=== PATIENT | male | born 1965 | race Caucasian/White ===

== ENCOUNTER 2016-07-27 20:16 | Inpatient (IN) | payer OTHER ==
--- NOTE | ~2016-07-27 | HP ---
History And Physical [address] [place]. [address] NAME: CIRO SCRUGGS JR : 67 STATUS : ADM IN [facility]#: [id number] AGE: 51 ADM/REG DATE : 07/27/16 MR#: [id number] REPORT SERV DATE: 07/28/16 DICTATED BY: WILTON QUILES DATE: 07/28/16 REPORT STATUS : Draft TRANSCRIBED BY: MODJennifer DATE: 07/28/16 DATE OF ADMISSION: 07/27/2016 CHIEF COMPLAINT: Dyspnea and edema. HISTORY OF PRESENT ILLNESS: Mr. Franco is a 51-year-old white male who underwent a cadaveric renal transplant in [place], [place], in 1995 for lupus. He was on dialysis for 22 months prior to his transplant. He follows with Dr. Mejia of [facility]. Records are not available at the time of this dictation. He states his baseline creatinine is approximately 4 over the last several months to years. Two weeks ago, his fosinopril was changed to amlodipine, and over that time, he has developed worsening edema, dyspnea, PND, orthopnea, and a 12 to 15 pounds weight gain. This past weekend, he stopped his amlodipine and restarted his previous dose of fosinopril. In the ER, chest x-ray last night showed a right lower lobe acute infiltrate, his BNP was 458. White count 13,100, and EKG showed atrial flutter. He was placed on IV heparin and admitted to the 7th floor. Initial troponin was normal. PAST MEDICAL HISTORY: 1. Cadaveric renal transplant in 1995 for lupus in [place], [place]. 2. CKD 5 with baseline creatinine 4 to 4.5. 3. Osteoarthritis with L3-S1 fusion in 2011 and subsequent S1 fusion with replacement of hardware in 2012. 4. Obstructive sleep apnea, on CPAP. 5. Obesity. 6. Hypertension. 7. Hyperlipidemia. MEDICATIONS: On admission, allopurinol 300 mg daily, vitamin C, atenolol 50 mg daily, clonidine 0.2 twice a day, cyclosporine 100 mg b.i.d., fosinopril 10 mg daily, Neurontin 1200 mg h.s., Amaryl 1 mg b.i.d., Lortab 7.5 b.i.d. p.r.n., mesalamine 0.75 g b.i.d., multivitamin daily, CellCept 1000 mg b.i.d., Prilosec 40 mg daily, Pravachol 20 mg h.s., and prednisone 7.5 mg daily. FAMILY HISTORY: No ESRD. SOCIAL HISTORY: Nonsmoker. . Lives in [place], [place]. REVIEW OF SYSTEMS: Please see HPI for pertinent details. He has had fever, chills, and nonproductive cough. No recent sick contacts. No recent OTC NSAID use. No recent symptoms. Denies uremic symptoms. PHYSICAL EXAMINATION: VITAL SIGNS: Temperature 98.9, pulse 82, respirations 20, blood pressure 173/102, and 96% saturation on room air. Urine output not recorded. GENERAL: He is a pleasant middle-aged white male, excellent historian, no distress. Awake, History And Physical [address] [address] NAME: CIRO SCRUGGS JR : 67 STATUS : ADM IN [facility]#: [id number] AGE: 51 ADM/REG DATE : 07/27/16 MR#: [id number] REPORT SERV DATE: 07/28/16 DICTATED BY: WILTON QUILES DATE: 07/28/16 REPORT STATUS : Draft TRANSCRIBED BY: TREASURE DATE: 07/28/16 alert, oriented, and cooperative with the exam. NEURO: Grossly nonfocal. HEENT: Sclerae without icterus. Conjunctivae not injected. Oropharynx is clear. NECK: No JVD. LUNGS: He has bilateral rhonchi, worse on the right. No dyspnea or tachypnea on room air. Does have nasal CPAP. HEART: Heart rate is irregularly irregular. ABDOMEN: Obese, soft, nontender, nondistended. Right lower quadrant allograft is palpable and nontender. GENITOURINARY: Shows no Lal catheter. SKIN: Shows no rash. He has a bruise to his right arm at an IV insertion site. EXTREMITIES: Show 2+ pitting edema to the knees. MUSCULOSKELETAL: Shows no active tenosynovitis or gout. NEUROLOGIC: Mood and affect are appropriate. LABORATORY DATA: Sodium 147, potassium 3.5, BUN 72, creatinine 4.5, GFR 14. Calcium 7.9, magnesium 1.5, phosphorus 3.3, albumin 2.7. Troponin normal. BNP 458. White count 13,100 with INR of 1.1, 84 segs on the differential, hemoglobin 11.4, platelets 217,000. UA shows 3+ protein with no blood or infection. Blood cultures are pending. ASSESSMENT AND PLAN: Mr. Scruggs has cadaveric renal transplant in 1995 with chronic kidney disease stage 5, presents with volume overload, new onset atrial dysrhythmia, right lower lobe pneumonia, hypertension, leukocytosis, anemia, hypoalbuminemia, proteinuria, and hypomagnesemia. Asked Cardiology to evaluate. Check echocardiogram. He is on heparin drip at this time, and initial cardiac enzymes were negative. Diurese IV antibiotics. He maybe near end-stage renal disease with worsening renal function. No plans for transplant biopsy at this time. 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 If he does not respond to medical management, we would consider renal replacement therapy. Control blood pressure. Replace magnesium. His low magnesium may be related to use of PPI versus chronic transplant medications? NC/MODL Wilton Quiles M.D. / [id number] CC: Ciro Rodriguez M.D. Og James M.D. Roldan Mejia M.D.
--- NOTE | ~2016-07-27 | DS ---
Discharge Summary [facility] [address] [place]. [address] NAME: CIRO VAZQUEZ JR : 67 STATUS : DIS IN PAT#: [id number] AGE: 51 ADM/REG DATE : 07/27/16 MR#: [id number] REPORT SERV DATE: 08/11/16 DICTATED BY: BLAINE QUILES DATE: 08/11/16 REPORT STATUS : Draft TRANSCRIBED BY: TREASURE DATE: 08/11/16 Data Collection from hospitalization DISCHARGE DIAGNOSES: 1. Chronic kidney disease. 2. History of renal transplant. 3. Anemia. 4. Questionable pneumonia. 5. Hypertension. 6. Atrial fibrillation. 7. Obstructive sleep apnea. 8. Osteoarthritis with spinal fusion. 9. Qtt-fdhzdee-gztqmvpzf diabetes mellitus. 10.Hypercholesterolemia. 11.Proteinuria. 12.Obesity. CONSULTATIONS: 1. Lenard Waldron M.D. 2. Robert Dolan M.D. PROCEDURES PERFORMED: None. MEDICATIONS: Tylenol 650 mg daily as needed, Zyloprim 300 mg every morning, vitamin C 500 mg every morning, Zithromax as instructed, Catapres 0.2 mg twice a day, Neoral 100 mg twice a day, Lovenox as instructed, Monopril 10 mg every morning, Neurontin 1200 mg at bedtime, Amaryl 1 mg twice a day, Borger 7.5/325 one tablet twice a day as needed, Levsin 0.125 mg twice a day, Apriso 0.75 g twice a day, multivitamins with minerals one tablet every morning, CellCept 1 g twice a day, Prilosec 40 mg every morning, Pravachol 20 mg at bedtime, Deltasone 7.5 mg daily, Refresh one drop twice a day as needed, Zanaflex 12 mg at bedtime, and Coumadin as instructed. He was instructed not to continue atenolol. CONDITION AT DISCHARGE: Stable. DISPOSITION: The patient was discharged home on a low-sodium, renal diet with activities as instructed. He would follow up with Dr. Robert Dolan on 08/17/2016. He would follow up with Dr. Roldan Mejia the week following discharge. He was to follow up in the [facility] on 08/03/2016. HOSPITAL COURSE: This is a 51-year-old man who underwent a cadaveric renal transplant in 1995 for lupus. He had been on dialysis for 22 months prior to his transplant. His creatinine has been approximately 4 over the past several months to years. Two weeks prior to this admission, his fosinopril was changed to amlodipine, and over that time, he had developed worsening edema, dyspnea, PND, and orthopnea. He has had a 12- to 15-pound weight gain. Over the weekend prior to admission, he stopped his amlodipine and restarted his previous dose of fosinopril. In the emergency room, his chest x-ray revealed a right lower lobe acute infiltrate. BNP was 458. White count was 13,100. EKG showed atrial flutter. He was placed on IV heparin. Initial troponin was normal. He was in the hospital at this Discharge [address] [address] NAME: CIRO VAZQUEZ JR : 67 STATUS : DIS IN PAT#: [id number] AGE: 51 ADM/REG DATE : 07/27/16 MR#: [id number] REPORT SERV DATE: 08/11/16 DICTATED BY: BLAINE QUILES DATE: 08/11/16 REPORT STATUS : Draft TRANSCRIBED BY: TREASURE DATE: 08/11/16 time for further evaluation and treatment. Upon admission, white count was 13,100. INR level was 1.1. Creatinine level was 4.5. Blood cultures were pending. Echocardiogram was going to be performed. He was going to be diuresed and IV antibiotics were started. 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 If he does not respond to medical management, we would consider renal replacement therapy. We would control his blood pressure. Magnesium supplementation was going to be given. The following day, he was seen in consultation by Dr. Lenard Waldron. Chest x-ray had revealed an acute infiltrate in the right lung base. He had been found to be in atrial fibrillation with controlled ventricular response. Potassium was mildly depressed at 3.5. Coumadin was recommended at this time due to the renal insufficiency. We would follow his anticoagulation closely. Echocardiogram was performed. On 07/29/2016, he had good pain control. He was alert and cooperative. He had no edema. Creatinine level was 4.28. Ejection fraction was 55%. He was to use his CPAP. Metoprolol was discontinued. Pravastatin was continued. On 07/30/2016, creatinine was 4.17. He was in atrial fibrillation - rate controlled. The patient wanted to hold off on permanent pacemaker evaluation at this time. INR level was 1.2. O2 saturation was 97% on room air. He was changed to oral antibiotics. Renal function seemed to be at baseline. Potassium supplementation was started. On 07/31/2016, he had an elevated heart rate during the night. He still had pauses greater than 3 seconds. He was seen by Dr. Robert Dolan for electrophysiology consultation. He had been asked to see the patient regarding pauses and atrial fibrillation. The patient had been found to have new-onset atrial fibrillation. There had been previous EKGs demonstrating sinus rhythm to mild sinus bradycardia. His ventricular response and atrial fibrillation was well controlled. The previous evening while he was asleep fell and while he was on CPAP mask, he had a 3-second pause in atrial fibrillation. This was asymptomatic. He denies any history of presyncope or syncope. He was comfortable. He underwent an echocardiogram that showed essentially normal cardiac structure and function. The atrial fibrillation appeared to be persistent. He would eventually recommend that the patient undergo cardioversion to restore sinus rhythm. We may wish to consider antiarrhythmic if he failed the initial cardioversion. He felt that should probably be performed as an outpatient and let him recover from the pneumonia and/or congestive heart failure issues. He did recommend anticoagulation. He did not think that the patient needed a pacemaker at this time. He was at high risk for pacemaker implantation given the fact that he is on chronic immunosuppression with regard to his renal transplant. We would try to avoid pacemaker implantation because of these issues. If it was absolutely certain that he needs a pacemaker and was symptomatic with bradycardia, then we would proceed, but otherwise, he recommended that we try to avoid indwelling mechanical devices with this patient. O2 saturation was 98% on room air. PIO inhibitor was restarted. Discharge instructions were given. Due to his improved and stable condition, he was discharged home with the above-stated instructions. Information collected by: Lizabeth Alcantar I submit the above information as my discharge summary. TG/MODL Discharge Summary [facility] [address] [facility] [address] [place] [address] NAME: CIRO VAZQUEZ JR : 67 STATUS : DIS IN PAT#: [id number] AGE: 51 ADM/REG DATE : 07/27/16 MR#: [id number] REPORT SERV DATE: 08/11/16 DICTATED BY: BLAINE QUILES DATE: 08/11/16 REPORT STATUS : Draft TRANSCRIBED BY: TREASURE DATE: 08/11/16 Blaine Quiles M.D. / [id number] CC: Gualberto Garcia M.D. Gregg Shander, M.D. Gordon Graham, M.D.
--- NOTE | ~2016-07-27 | CN ---
Consultation Report [facility] [address] [place]. [address] NAME: CIRO SCRUGGS JR : 67 STATUS : ADM IN PAT#: [id number] AGE: 51 ADM/REG DATE : 07/27/16 MR#: [id number] REPORT SERV DATE: 07/31/16 DICTATED BY: JOSE HARRINGTON DATE: 07/31/16 REPORT STATUS : Draft TRANSCRIBED BY: MODJennifer DATE: 07/31/16 ELECTROPHYSIOLOGY CONSULTATION DATE OF CONSULTATION: REASON FOR CONSULTATION: This is a consultation from Dr. Kailash Zeng regarding pauses and atrial fibrillation. HISTORY OF PRESENT ILLNESS: Mr. Scruggs is a very pleasant 51-year-old gentleman with history of lupus with renal manifestations. He had renal failure and underwent cadaveric renal transplant 20 years ago in [place], [place]. He is maintained on chronic immunosuppression including use of prednisone. A few weeks ago, he was noted to have some increased protein in his urine and his medications were changed from fosinopril to amlodipine. After this time, he began having worsening pedal edema as well as increasing shortness of breath. This became so bad that he presented to the emergency room. There was question of possible infiltrate and the patient was started on antibiotic. There was also evidence of significant pedal edema and probable pulmonary edema as well, and the patient received IV diuresis. His symptoms have markedly improved. In addition to the above, the patient was also found to have new onset atrial fibrillation. There have been previous EKGs demonstrating sinus rhythm to mild sinus bradycardia. His ventricular response in atrial fibrillation was well controlled. I have been asked to see him because of the atrial fibrillation, but also last evening while asleep and on a CPAP mask, he had a three-second pause in atrial fibrillation. This was asymptomatic. The patient denies any history of presyncope or syncope. He is comfortable. He underwent an echocardiogram showing essentially normal cardiac structure and function. PAST MEDICAL HISTORY: Notable for, 1. Lupus. 2. Renal failure secondary to lupus, status post cadaveric renal transplant. 3. Worsening renal insufficiency. 4. Hypertension. 5. New onset atrial fibrillation. 6. Possible pneumonia. 7. Possible pulmonary edema. 8. Sleep apnea, on CPAP. CURRENT MEDICATIONS: Include Zithromax, Catapres, Amaryl, Levsin, prednisone 7.5 mg daily, Pravachol, Coumadin. FAMILY HISTORY: Noncontributory. Negative for premature coronary artery disease. Consultation Report [place] [address] [place]. [address] NAME: CIRO SCRUGGS JR : 67 STATUS : ADM IN PAT#: [id number] AGE: 51 ADM/REG DATE : 07/27/16 MR#: [id number] REPORT SERV DATE: 07/31/16 DICTATED BY: JOSE HARRINGTON DATE: 07/31/16 REPORT STATUS : Draft TRANSCRIBED BY: TREASURE DATE: 07/31/16 SOCIAL HISTORY: Negative tobacco or alcohol. REVIEW OF SYSTEMS: As noted above. All other systems reviewed and are negative. PHYSICAL EXAMINATION: GENERAL: No acute distress, breathing comfortably. VITAL SIGNS: Blood pressure of 130/60, pulse 74 in atrial fibrillation, respirations 16. HEENT: No icterus. Good dentition. NECK: Supple. No masses or thyromegaly LUNGS: Breathing comfortably. No rales or wheezes. COR: He has an irregularly irregular rhythm. ABD: Soft, nondistended, nontender, no hepatosplenomegaly. EXT: No clubbing, cyanosis or edema. Peripheral pulses 2+/=bilaterally. SKIN: Warm and dry. No visible lesions. MS: Chest wall without deformity, no obvious clavicular fractures. NEURO/PSYCH: Oriented X3. No anxiety or depression. LABORATORY VALUES: His white count today is 11.3, down from 13.3 on admission; hematocrit of 35. Troponin is negative. His BNP is 457. Electrolytes are within normal limits. His creatinine is 4.17, which is approximately the same as on his admission. IMPRESSION: 1. Atrial fibrillation of new onset, appears to be persistent. I would eventually recommend that he undergo cardioversion to restore sinus rhythm. We may wish to consider antiarrhythmic if he fails the initial cardioversion. I would probably recommend doing this as an outpatient and let him recover from the pneumonia and/or congestive heart failure issues. I would recommend anticoagulation. 2. Pauses during atrial fibrillation. These are asymptomatic and occurred in the middle the night, and I do not believe he needs a pacemaker. Moreover, he is at high risk for pacemaker implantation given the fact that he is on chronic immunosuppression in regard to his renal transplant. I would try to avoid pacemaker implantation for him because of these issues. If it is absolutely certain that he needs a pacemaker and is symptomatic with bradycardia, then I would proceed, but otherwise, again I would try to avoid indwelling mechanical devices with this patient. 3. Congestive heart failure symptoms, normal ejection fraction. I will defer to both the boat tester and to the control inspector in regard to use of diuretic for this patient. MOI/TREASURE Jose Harrington M.D. Consultation Report [address] [address] NAME: CIRO SCRUGGS MAXIMILIAN PEDRAZA : 67 STATUS : ADM IN [facility]#: [id number] AGE: 51 ADM/REG DATE : 07/27/16 MR#: [id number] REPORT SERV DATE: 07/31/16 DICTATED BY: JOSE HARRINGTON DATE: 07/31/16 REPORT STATUS : Draft TRANSCRIBED BY: TREASURE DATE: 07/31/16 / [id number] CC: Gualberto Garcia M.D.
--- NOTE | ~2016-07-27 | CN ---
Consultation Report [address] [place]. [address] NAME: CIRO SCRUGGS JR : 67 STATUS : ADM IN PAT#: [id number] AGE: 51 ADM/REG DATE : 07/27/16 MR#: [id number] REPORT SERV DATE: 07/28/16 DICTATED BY: LENARD WALDRON DATE: 07/28/16 REPORT STATUS : Draft TRANSCRIBED BY: MODL DATE: 07/28/16 CONSULTATION DATE OF CONSULTATION: REASON FOR CONSULTATION: Ciro Munoz is a 51-year-old male, who is referred for control of new onset atrial fibrillation. CVD PHYSICIAN: Lenard Waldron M.D. NURSE TRANSPLANT: Stephon Vicente M.D. HISTORY OF PRESENT ILLNESS: Mr. Scruggs was admitted by Dr. Mejia of Ne[facility]rology for dyspnea, fever, and chills. Upon admission, he was found to be in atrial fibrillation with controlled ventricular response. Chest x-ray was read as an acute infiltrate in the right lung base. Antibiotics were prescribed. REVIEW OF SYSTEMS: Negative for previous syncope, presyncope, chest pain, chest discomfort, and history of palpitations. PAST MEDICAL HISTORY: 1. Status post renal transplant 20 years ago. 2. Mild Crohn disease. 3. Lupus, which caused the renal failure. 4. Obstructive sleep apnea. 5. Hypertension, longstanding. 6. Hyperlipidemia. 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 He is and is in attendance. He does not smoke. He has occasional drink. FAMILY HISTORY: Negative for early heart disease. PHYSICAL EXAMINATION: VITAL SIGNS: Blood pressure is 166/83, pulse is in the 80s. GENERAL: He is alert and cooperative. Resting comfortably at this time. LUNGS: Precordium is quiet. Bilateral breath sounds are heard. HEART: Rhythm is irregular. No significant murmurs are heard. No rub is heard. ABDOMEN: Soft. EXTREMITIES: Warm. LABORATORY EVALUATION: EKG shows atrial flutter. Consultation Report [address] [place]. [address] NAME: CIRO SCRUGGS JR : 67 STATUS : ADM IN PAT#: [id number] AGE: 51 ADM/REG DATE : 07/27/16 MR#: [id number] REPORT SERV DATE: 07/28/16 DICTATED BY: LENARD WALDRON DATE: 07/28/16 REPORT STATUS : Draft TRANSCRIBED BY: MODL DATE: 07/28/16 Telemetry shows atrial fibrillation with controlled ventricular response. Creatinine is 4.5, potassium mildly depressed at 3.5. INR is 1.1. Platelet count is 217. ASSESSMENT: 1. Anticoagulation. We will recommend Coumadin at this time due to the renal insufficiency. 2. Rate controlled atrial fibrillation. 3. Renal insufficiency, status post renal transplant. No change. 4. History of lupus. Follow anticoagulation closely. CAROL/TREASURE Lenard Waldron M.D. / [id number] CC: Gualberto Garcia M.D.
[2016-07-27 18:32] LABS: BASOPHILS 0.1 %; BASOPHILS ABSOLUTE 0.01 10/3/uL (0.0-0.16); EOSINOPHILS 0.9 %; EOSINOPHILS ABSOLUTE 0.12 10/3/uL (0.0-0.53); HEMOGLOBIN 11.4 g/dL (13.6-17.8); IMMATURE GRANULOCYTES 0.2 %; IMMATURE GRANULOCYTES ABSOLUTE 0.03 10/3/uL (0.0-0.11); LYMPHOCYTES 7.4 %; LYMPHOCYTES ABSOLUTE 0.97 10/3/uL (0.67-4.30); MEAN CORPUS HGB CONC 32.6 g/dL (32.0-36.0); MEAN CORPUSCULAR HEMOGLOB 29.7 pg (26.0-34.0); MEAN CORPUSCULAR VOLUME 91.1 fL (80-100); MEAN PLATELET VOLUME 9.8 fL (9.2-13.0); MONOCYTES 7.5 %; MONOCYTES ABSOLUTE 0.98 10/3/uL (0.21-1.20); NEUTROPHILS 83.9 %; PLATELET COUNT 217 10/3/uL (150-400); RBC DISTRIBUTION WIDTH 14.1 % (12.0-16.0); RED CELL COUNT 3.84 10/6/uL (4.7-6.1)
[2016-07-27 18:35] LABS: ER CBC TAT 0 Hrs 09 Mins; MANUAL DIFF NO %; WHITE BLOOD CELLS 13.1 10/3/uL (4.5-10.5)
[2016-07-27 18:44] LABS: INTERNATIONAL NORMAL RATI 1.1 UNITS (-); PROTIME (NOT ORD) 14.1 SEC (12.0-14.5)
[2016-07-27 18:51] LABS: CALCIUM, SERUM 8.7 MG/DL (8.5-10.4); CHEST PAIN PROFILE TAT 0 Hrs 25 Mins; CHLORIDE, SERUM 115 MMOL/L (96-112); CO2 (CARBON DIOXIDE) 21 MMOL/L (24-34); POTASSIUM, SERUM 4.3 MMOL/L (3.5-5.3); SODIUM, SERUM 145 MMOL/L (135-148); TROPONIN I <0.02 NG/ML (<0.05)
[2016-07-27 18:56] LABS: BUN (BLOOD UREA NITROGEN) 76 MG/DL (6-23); CREATININE 4.68 MG/DL (0.70-1.30); GFR AFRICAN AMERICAN 16 ML/MIN (>=60); GFR NON AFRICAN AMERICAN 14 ML/MIN (>=60); GLUCOSE, SERUM 88 MG/DL (60-99)
[~2016-07-27 20:16] MED LIST: AMARYL1 MG PO; APRISO0.375 GM PO; ATEN50 PO; CAT1 PO; CAT2 PO; CELLCEPT 250 MG PO; CELLCEPT2 PO; CHLORDIAZEPOXIDE; CLIDINIUM; COLCH6 PO; DIABET1.25 PO; DIL2TAB PO; FOSINOPRIL PO; LEVSINTAB PO; LIBRAX PO; LORT7 PO; METHOC750B PO; MONO10 PO; MONO20 PO; MULTIPLE VIT PO; MULTIVIT/MIN PO; NEORAL100 MG OR; NEORAL100 MG PO; NEUR300 PO; NEUR600 PO; NORCO1 TA2 PO; OXYCONTIN30 MG PO; P5 PO; PENTASA500 MG PO; PRAVAC PO; PREDNISONE; PREDNISONE2.5 MG PO; PRILO PO; PRILOSEC40 MG PO; QUESTRAN4 GM PO; REFRES1 OPH; SLO MAG; SLOWMAG PO; T PO; VICODIN ES1 TAB PO; VITC500 PO; VOLTAREN1 % TOP; WELCHOL 625 MG625 MG PO; Z300 PO; ZANAFLEX 4 MG TA4 MG PO; ZETIA PO
[2016-07-27 20:37] LABS: WBC (NOT ORDERED) (RFLEX) 0 (0-5)
[2016-07-27 20:44] LABS: LACTATE 0.9 MMOL/L (0.3-2.4)
[2016-07-27 20:48] LABS: ASCORBIC ACID (UR NOT ORDER) NEG (NEG); BILIRUBIN, URINE NEGATIVE (NEG); ER URINALYSIS TAT 0 Hrs 12 Mins; KETONE, URINE NEGATIVE (NEG); LEUKOCYTE ESTERASE(NOT OR NEG (NEG); NITRITE (URINE) NEG (NEG)
[2016-07-28 04:03] LABS: ALBUMIN 2.7 G/DL (3.5-5.0); BUN (BLOOD UREA NITROGEN) 72 MG/DL (6-23); CALCIUM, SERUM 7.9 MG/DL (8.5-10.4); CHLORIDE, SERUM 115 MMOL/L (96-112); CO2 (CARBON DIOXIDE) 23 MMOL/L (24-34); CREATININE 4.46 MG/DL (0.70-1.30); GFR AFRICAN AMERICAN 17 ML/MIN (>=60); GFR NON AFRICAN AMERICAN 14 ML/MIN (>=60); GLUCOSE, SERUM 80 MG/DL (60-99); PHOSPHORUS, SERUM 3.3 MG/DL (2.5-4.5); POTASSIUM, SERUM 3.5 MMOL/L (3.5-5.3); SODIUM, SERUM 147 MMOL/L (135-148)
[2016-07-29 04:51] LABS: BASOPHILS 0.2 %; BASOPHILS ABSOLUTE 0.03 10/3/uL (0.0-0.16); EOSINOPHILS 1.8 %; EOSINOPHILS ABSOLUTE 0.24 10/3/uL (0.0-0.53); HEMOGLOBIN 10.1 g/dL (13.6-17.8); IMMATURE GRANULOCYTES 0.5 %; IMMATURE GRANULOCYTES ABSOLUTE 0.07 10/3/uL (0.0-0.11); LYMPHOCYTES 17.4 %; LYMPHOCYTES ABSOLUTE 2.31 10/3/uL (0.67-4.30); MEAN CORPUS HGB CONC 33.1 g/dL (32.0-36.0); MEAN CORPUSCULAR HEMOGLOB 30.2 pg (26.0-34.0); MEAN CORPUSCULAR VOLUME 91.3 fL (80-100); MEAN PLATELET VOLUME 9.2 fL (9.2-13.0); MONOCYTES 9.6 %; MONOCYTES ABSOLUTE 1.27 10/3/uL (0.21-1.20); NEUTROPHILS 70.5 %; NEUTROPHILS ABSOLUTE 9.33 10/3/uL (2.02-8.40); PLATELET COUNT 246 10/3/uL (150-400); RBC DISTRIBUTION WIDTH 13.6 % (12.0-16.0); RED CELL COUNT 3.34 10/6/uL (4.7-6.1); WHITE BLOOD CELLS 13.3 10/3/uL (4.5-10.5)
[2016-07-29 04:56] LABS: HEMATOCRIT 30.5 % (40.0-51.0); MANUAL DIFF NO %
[2016-07-29 05:09] LABS: ALBUMIN 2.5 G/DL (3.5-5.0); CALCIUM, SERUM 8.5 MG/DL (8.5-10.4); CHLORIDE, SERUM 109 MMOL/L (96-112); CREATININE 4.28 MG/DL (0.70-1.30); GFR AFRICAN AMERICAN 17 ML/MIN (>=60); GFR NON AFRICAN AMERICAN 15 ML/MIN (>=60); GLUCOSE, SERUM 78 MG/DL (60-99); POTASSIUM, SERUM 3.6 MMOL/L (3.5-5.3); SODIUM, SERUM 142 MMOL/L (135-148)
[2016-07-29 05:25] LABS: BUN (BLOOD UREA NITROGEN) 59 MG/DL (6-23); CO2 (CARBON DIOXIDE) 18 MMOL/L (24-34); PHOSPHORUS, SERUM 5.1 MG/DL (2.5-4.5)
[2016-07-29 11:32] LABS: INTERNATIONAL NORMAL RATI 1.2 UNITS (-); PROTIME (NOT ORD) 14.7 SEC (12.0-14.5)
[2016-07-30 06:32] LABS: INTERNATIONAL NORMAL RATI 1.2 UNITS (-); PROTIME (NOT ORD) 15.4 SEC (12.0-14.5)
[2016-07-30 06:37] LABS: BASOPHILS 0.2 %; BASOPHILS ABSOLUTE 0.02 10/3/uL (0.0-0.16); EOSINOPHILS 1.9 %; EOSINOPHILS ABSOLUTE 0.21 10/3/uL (0.0-0.53); HEMOGLOBIN 11.7 g/dL (13.6-17.8); IMMATURE GRANULOCYTES 0.5 %; IMMATURE GRANULOCYTES ABSOLUTE 0.06 10/3/uL (0.0-0.11); LYMPHOCYTES 19.8 %; LYMPHOCYTES ABSOLUTE 2.24 10/3/uL (0.67-4.30); MEAN CORPUS HGB CONC 33.9 g/dL (32.0-36.0); MEAN CORPUSCULAR HEMOGLOB 30.2 pg (26.0-34.0); MEAN CORPUSCULAR VOLUME 89.1 fL (80-100); MEAN PLATELET VOLUME 9.1 fL (9.2-13.0); MONOCYTES 7.6 %; MONOCYTES ABSOLUTE 0.86 10/3/uL (0.21-1.20); PARTIAL THROMBO TIME 127.8 SEC (22.5-37.2); PLATELET COUNT 256 10/3/uL (150-400); RBC DISTRIBUTION WIDTH 13.4 % (12.0-16.0); RED CELL COUNT 3.87 10/6/uL (4.7-6.1); WHITE BLOOD CELLS 11.3 10/3/uL (4.5-10.5)
[2016-07-30 06:42] LABS: ALBUMIN 2.6 G/DL (3.5-5.0); BUN (BLOOD UREA NITROGEN) 56 MG/DL (6-23); CHLORIDE, SERUM 109 MMOL/L (96-112); CREATININE 4.17 MG/DL (0.70-1.30); GFR AFRICAN AMERICAN 18 ML/MIN (>=60); GFR NON AFRICAN AMERICAN 16 ML/MIN (>=60); HEMATOCRIT 34.5 % (40.0-51.0); MANUAL DIFF NO %; POTASSIUM, SERUM 3.5 MMOL/L (3.5-5.3); SODIUM, SERUM 144 MMOL/L (135-148)
[2016-07-30 06:43] LABS: CO2 (CARBON DIOXIDE) 22 MMOL/L (24-34); GLUCOSE, SERUM 102 MG/DL (60-99); PHOSPHORUS, SERUM 6.1 MG/DL (2.5-4.5)
[2016-07-31 08:57] LABS: INTERNATIONAL NORMAL RATI 1.1 UNITS (-); PROTIME (NOT ORD) 14.5 SEC (12.0-14.5)
[2016-07-31 09:12] LABS: BUN (BLOOD UREA NITROGEN) 53 MG/DL (6-23); CALCIUM, SERUM 9.3 MG/DL (8.5-10.4); CHLORIDE, SERUM 109 MMOL/L (96-112); CO2 (CARBON DIOXIDE) 20 MMOL/L (24-34); CREATININE 3.91 MG/DL (0.70-1.30); GFR AFRICAN AMERICAN 19 ML/MIN (>=60); GFR NON AFRICAN AMERICAN 17 ML/MIN (>=60); GLUCOSE, SERUM 57 MG/DL (60-99); PHOSPHORUS, SERUM 5.3 MG/DL (2.5-4.5); POTASSIUM, SERUM 3.3 MMOL/L (3.5-5.3); SODIUM, SERUM 141 MMOL/L (135-148)
[2016-07-31] MEDS ORDERED: ZITHROMAX500 MG (14:55)
[2016-07-31] MEDS ORDERED: LOVENOX120 (14:55)
[2016-07-31] MEDS ORDERED: C2 PO (15:08)
== END 2016-07-31 18:43 | disposition home or self-care (01) | DRG 308 ==
LOC: ER 20:16 → 7NO 20:35
PROVIDERS: Emergency Medicine; Hospitalist; Internal Medicine Nephrology; Registered Nurse
DX: I48.91 Unspecified atrial fibrillation (principal); J18.9 Pneumonia, unspecified organism; M32.9 Systemic lupus erythematosus, unspecified; Z68.41 Body mass index [BMI] 40.0-44.9, adult; Z94.0 Kidney transplant status; E66.01 Morbid (severe) obesity due to excess calories; I10 Essential (primary) hypertension; G47.33 Obstructive sleep apnea (adult) (pediatric); Z90.49 Acquired absence of other specified parts of digestive tract; Z90.5 Acquired absence of kidney; E78.5 Hyperlipidemia, unspecified; Z79.52 Long term (current) use of systemic steroids
CPT/HCPCS: 71020; 73110-RT; 73130-RT; 80048; 80069; 81001; 83605; 83735; 83880; 84484; 85025; 85610; 85730; 87040; 93005; 99285; A9270-GY; C8929; J0360; J0456; J1940; J2550; J3475; J7502; Q9957

== ENCOUNTER 2016-12-01 12:37 | Inpatient (IN) | payer OTHER ==
[~2016-12-01] VITALS: Ht 167.6 cm; Wt 103.6 kg
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
--- NOTE | ~2016-12-01 | CN ---
Consultation Report [facility] [address] [place]. [address] NAME: CIRO VAZQUEZ JR : 67 STATUS : ADM Brenna PAT#: [id number] AGE: 51 ADM/REG DATE : 12/01/16 MR#: [id number] REPORT SERV DATE: 12/01/16 DICTATED BY: DATE: REPORT STATUS : Draft TRANSCRIBED BY: MODL DATE: 12/01/16 DATE OF CONSULTATION: 12/01/2016 REASON: Renal transplant patient. HISTORY OF PRESENT ILLNESS: This is a very pleasant 51-year-old male patient, followed in our office by Dr. Anthony Mejia. He is a known a renal transplant patient with renal transplantation in the [facility] area in 1995 with renal failure secondary to lupus. He was previously on dialysis for approximately 22 months. He does have a left upper extremity access that is no longer usable, and he has no active bruit and thrill. He required a short stint of dialysis in September of this year while the patient hospitalized inpatient at [facility]. On 10/04/2016, his creatinine was 5.3, Vas-Cath was removed. He was sent out on prednisone 7.5 mg p.o. daily, 1 g of CellCept b.i.d., Cyclosporine was decreased to 50 mg p.o. b.i.d. He has followed up since with Dr. Mejia. I do not have available laboratories to me at this point, but the patient suggest that his renal panel indicated a creatinine somewhere around 4.0. He presents to [facility] with a complaint of ongoing fever as high as 104 degrees orally at home according to his measurements over the last 48 to 72 hours. He reports some associated nausea, but no overt ongoing nausea. No ongoing problems with fatigue that would indicate possible uremia. We are asked to evaluate the patient in light of his renal dysfunction and known history of renal transplantation and recent history of dialysis. PAST MEDICAL HISTORY: Positive for cadaveric renal transplant in 1995 for lupus in [place], [place]. History is also positive for CKD stage 4, baseline creatinine of 4 to 4.5, osteoarthritis with L3-S1 fusion in 2011, subsequent S1 fusion with replacement of hardware in 2012, obstructive sleep apnea, on CPAP, obesity, hypertension, hyperlipidemia. REVIEW OF SYSTEMS: Completed. Please see HPI for pertinent details. SOCIAL HISTORY: No ETOH. No illicit drugs. No tobacco. FAMILY HISTORY: Noncontributory and not reviewed during this consultation and dictation. ALLERGIES: ADVERSE REACTIONS TO BACLOFEN. ACTIVE MEDICATIONS: Include Zyloprim 300 mg daily, vitamin C 500 mg p.o. daily, Tenormin 50 mg p.o. daily, vitamin D3 of 50,000 units p.o. q.h.s., Catapres 0.4 p.o. b.i.d., Neoral 50 mg p.o. b.i.d., Prozac 20 mg p.o. daily, Amaryl 1 mg p.o. b.i.d., [place] 7.5 mg/325 mg p.o. b.i.d. p.r.n., Levsin 0.125 mg p.o. twice a day, Levaquin 500 mg daily x7 days started on 11/30/2016, Apriso 0.375 g caplets b.i.d., CellCept 1000 mg p.o. b.i.d., Prilosec 40 mg p.o. daily, Pravachol 20 mg p.o. daily, prednisone 7.5 mg daily, Slow-Mag one tablet p.o. daily, warfarin 2 mg p.o. q.48 hours and 2.5 mg p.o. q.48 hours alternating with 2 mg dosing. PHYSICAL EXAMINATION: Consultation Report [address] [place]. [address] NAME: CIRO VAZQUEZ : 67 STATUS : ADM Brenna PAT#: [id number] AGE: 51 ADM/REG DATE : 12/01/16 MR#: [id number] REPORT SERV DATE: 12/01/16 DICTATED BY: DATE: REPORT STATUS : Draft TRANSCRIBED BY: MODL DATE: 12/01/16 VITAL SIGNS: Blood pressure at 140/89, temperature at 97.2, respiratory rate at 18, heart rate is 67 beats per minute and regular, 98% on room air. GENERAL: He is an awake, alert and oriented male patient, lying in bed during evaluation in no acute distress. HEENT: Normocephalic and atraumatic. Normal ocular movements. No scleral icterus. No conjunctival pallor is appreciated. NECK: Without thyromegaly. No JVD or mass. CHEST: Shows positive S1 and S2. No rubs or gallops. LUNGS: Diminished throughout. Normal expansion effort bilaterally. No rhonchi or wheezes are appreciated on auscultation. GI: Shows positive bowel sounds in all four quadrants. No appreciable mass or tenderness. : Deferred. EXTREMITIES: Show positive pulses bilaterally upper and lower. He does have an old axis in his left upper extremity that is unusable and has no bruit nor thrill. NEUROLOGIC: Appears to be grossly intact. Nonfocal. SKIN: Warm and dry intact to visualized surfaces. No rash, lesions, or ecchymosis. PSYCH: He is of appropriate mood and affect. LABORATORY DATA: Pertinent laboratories and imaging are available at this time include urinary and blood cultures. Urinary cultures suggest gram-negative bacilli to be identified. A greater than 100,000 colonies of E. coli is not detected in his blood culture. CBC shows white blood cell count of 14.2, RBC 3.19, hemoglobin 9.3, hematocrit 28.5, platelets 236. Electrolyte profile remains pending. IMPRESSION AND PLAN: This is a donor renal transplant patient in 1995 in [place], [place] area, recent inpatient hospitalization at [facility] for what appears to be the sepsis with a short stent of dialysis via a Vas-Cath with removal and subsequent followup in the office with baseline creatinine around 3.8 to 4.0 at last followup according to the patient. He now presents to [facility] with complaint of fever with temperatures ranging up to 104 with ongoing chronic immunosuppression and known renal transplant as above. The patient is agreeable to once again initiate hemodialysis should clinical findings support initiation of treatment, however, at this point, he does not appear toxic and in need of acute dialysis. His renal panel does remain pending. Volume status appears to be stable. We did have an acute indication of his potassium. Creatinine at the office was at around 4.0 at his last check according to the patient. We will ask Infectious Disease to consult on the patient given his recent difficulty with sepsis and ongoing difficulty with fever in the light of immunosuppression. Treat him with vancomycin and cefepime. Modify diuretics based on from clinical findings and indications from an Infectious Disease standpoint and interrupt his steroids, interrupt his cyclosporine and check cyclosporine in the a.m. and continue his other immunosuppression at this point. We will also check echocardiogram with recurrent difficulty with elevation in temperature and known spinal hardware is present. Defer other workup regarding febrile illness to Infectious Disease. Blood cultures and urine cultures are being collected as at present. We will further evaluate the patient as renal panel and other readings become apparent. We will also ask for data from our office regarding this gentleman's ongoing followup. If Consultation Report [place] [address] [id number] NAME: CIRO VAZQUEZ : 67 STATUS : ADM Brenna PAT#: [id number] AGE: 51 ADM/REG DATE : 12/01/16 MR#: [id number] REPORT SERV DATE: 12/01/16 DICTATED BY: DATE: REPORT STATUS : Draft TRANSCRIBED BY: MODL DATE: 12/01/16 clinical indication should arise for hemodialysis, he is agreeable to initiate, and we will evaluate him as he proceeds for any initiation needs. We appreciate the assistance of Infectious Disease providing guidance and care for this patient. Further modification of treatment plan may be made based on the clinical presentation of the patient, laboratory results, further consultation with renal attending. As always, we appreciate consultation. We are glad to follow. /TREASURE Aly Champagne NP / [id number] CC: Art Ojeda Jr, MD David Elias, M.D.
--- NOTE | ~2016-12-01 | DS ---
Discharge Summary [facility] [address] [place]. [address] NAME: CIRO VAZQUEZ JR : 67 STATUS : DIS IN PAT#: [id number] AGE: 51 ADM/REG DATE : 12/01/16 MR#: [id number] REPORT SERV DATE: 12/08/16 DICTATED BY: ALFRED ASHBY DATE: 12/07/16 REPORT STATUS : Draft TRANSCRIBED BY: MODL DATE: 12/07/16 ADMISSION DATE: 12/01/2016 DISCHARGE DATE: 12/07/2016 DISCHARGE DIAGNOSES: 1. Sepsis, bacteremia, urinary tract infection, culture growing Escherichia coli, present on admission. 2. Acute kidney injury on chronic kidney disease in the setting of history of renal transplant 21 years ago. 3. History of systemic lupus erythematosus. 4. Obstructive sleep apnea, on current CPAP therapy. 5. Chronic atrial fibrillation. 6. Hypertension. 7. Hyperlipidemia. 8. Diabetes type 2, most recent hemoglobin A1c 6.2 in 05/2016. DISCHARGE MEDICATIONS: As follows: Vitamin C 500 mg daily; atenolol 50 mg daily; vitamin D3, 5000 units daily; Prozac 20 mg twice a day; Levsin 0.125 mg p.o. twice a day; Apriso g p.o. twice a day; CellCept 1000 mg twice a day; Neoral 50 mg p.o. twice a day; Prilosec 40 mg daily; Pravachol 20 mg at bedtime; Catapres 0.4 mg twice a day; allopurinol 300 mg daily, did discuss the risk of this medication and he states that artificial glass eye maker aware, he will continue taking; [place] 7.5/325 one tablet twice a day p.r.n. for pain, prednisone 7.5 mg daily, Coumadin 2 mg every 48 hours and 2.5 mg the other 48 hours, Slow-Mag calcium one tablet at bedtime. Lastly, discussed Amaryl as this can cause hypoglycemia and kidney disease. He will follow up with Dr. James, primary care, to discuss further continuation of this drug. Cipro 250 mg twice a day for eight more days. HISTORY OF PRESENT ILLNESS: This is a 51-year-old white male who presented with worsening creatinine, malaise, fatigue, headache, and low-grade fever. Please see initial H and P of Dr. Art Ojeda. The patient was admitted to the Hospitalist Service for further evaluation and treatment. He was initially started on empiric antibiotic therapy. Lab work was ordered and followed. Cultures were obtained. Consultants during this admission included Infectious Disease, Dr. Medardo Verma. Please see the interim discharge summary also of Dr. Ojeda as this further discharge summary will cover the dates of 12/05/2016 to 12/07/2016. HOSPITAL COURSE: The patient's E coli urinary tract infection was continued to be treated by cefepime and IV antibiotic, followed closely by Infectious Disease. Discussion with Nephrology on the question whether dialysis would have to be initiated in this admission or at a later date. Thankfully, his kidney function did seem to plateau and creatinine began to fall; after a crest creatinine of 5.17, fell to 5.04 and then to 4.86. The patient has begun to feel some better. He has appointments as an outpatient with Nephrology, also with Vascular surgeon, Dr. Aamir Porter, for further consideration of grafting for hemodialysis placement. Given his clinical improvement, the fact that he has had no further fevers, and his creatinine has fallen down to 4.45, his antibiotics were de-escalated and he was felt safe for discharge home on 12/07/2016 to follow up outpatient as stated with Dr. Rutledge Discharge Summary [address] [address] NAME: CIRO VAZQUEZ JR : 67 STATUS : DIS IN PAT#: [id number] AGE: 51 ADM/REG DATE : 12/01/16 MR#: [id number] REPORT SERV DATE: 12/08/16 DICTATED BY: ALFRED ASHBY DATE: 12/07/16 REPORT STATUS : Draft TRANSCRIBED BY: MODL DATE: 12/07/16 [place], vascular surgeon; his artificial glass eye maker, Dr. Mejia; his primary care, Dr. James. I appreciate the help of the consultants on this hospitalization. Questions were answered extensively at bedside. Please note greater than 30 minutes were spent on this discharge for medication teaching, followup planning, and further disposition. Collaborative physician for myself is Dr. Alfred Ashby. [facility]/MODL Blaine Arndt, TAN ROOM SUPERVISOR Alfred Ashby MD / [id number] CC: MD Og Yarbrough M.D.
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
[~2016-12-01 12:37] MED LIST changes: +C2 PO; +LOVENOX120; +ZITHROMAX500 MG
[2016-12-01] MEDS ORDERED: VITAMIN D31000 UNIT PO (15:10)
[2016-12-01] MEDS ORDERED: ATEN50 PO (15:10)
[2016-12-01] MEDS ORDERED: C25 PO (15:13)
[2016-12-01] MEDS ORDERED: PROZAC PO (15:14)
[2016-12-01] MEDS ORDERED: NEORAL25 MG PO (15:15)
[2016-12-01] MEDS ORDERED: LEVAQUIN5T PO (15:16)
[2016-12-01] MEDS ORDERED: SLO MAG PO (15:16)
[2016-12-01] MEDS ORDERED: CALCIUM PO (15:16)
[2016-12-01 17:01] LABS: BASOPHILS 0 %; EOSINOPHILS 0.5 %; EOSINOPHILS ABSOLUTE 0.05 10/3/uL (0.0-0.53); HEMATOCRIT 27.4 % (40.0-51.0); IMMATURE GRANULOCYTES 0.6 %; IMMATURE GRANULOCYTES ABSOLUTE 0.06 10/3/uL (0.0-0.11); LYMPHOCYTES 6.4 %; LYMPHOCYTES ABSOLUTE 0.68 10/3/uL (0.67-4.30); MANUAL DIFF NO %; MEAN CORPUS HGB CONC 32.8 g/dL (32.0-36.0); MEAN CORPUSCULAR HEMOGLOB 29.4 pg (26.0-34.0); MEAN CORPUSCULAR VOLUME 89.5 fL (80-100); MEAN PLATELET VOLUME 8.5 fL (9.2-13.0); MONOCYTES 8.1 %; MONOCYTES ABSOLUTE 0.86 10/3/uL (0.21-1.20); NEUTROPHILS 84.4 %; NEUTROPHILS ABSOLUTE 8.99 10/3/uL (2.02-8.40); PLATELET COUNT 248 10/3/uL (150-400); RBC DISTRIBUTION WIDTH 14.9 % (12.0-16.0); RED CELL COUNT 3.06 10/6/uL (4.7-6.1); WHITE BLOOD CELLS 10.6 10/3/uL (4.5-10.5)
[2016-12-01 17:05] LABS: INTERNATIONAL NORMAL RATI 1.7 UNITS (-)
[2016-12-01 17:06] LABS: PROTIME (NOT ORD) 19.7 SEC (12.0-14.5)
[2016-12-01 17:17] LABS: ALBUMIN 2.6 G/DL (3.5-5.0); ALKALINE PHOSPHATASE 108 U/L (45-117); CALCIUM, SERUM 7.8 MG/DL (8.5-10.4); CHLORIDE, SERUM 105 MMOL/L (96-112); CO2 (CARBON DIOXIDE) 20 MMOL/L (24-34); SGOT(AST) 32 U/L (5-40); SGPT(ALT) 37 U/L (5-65); TOTAL BILIRUBIN 0.4 MG/DL (0-1.2); TOTAL PROTEIN 7.1 G/DL (6.0-8.5)
[2016-12-01 17:18] LABS: A/G RATIO 0.6 (0.7-1.9); BUN (BLOOD UREA NITROGEN) 38 MG/DL (6-23); CREATININE 3.77 MG/DL (0.70-1.30); GFR AFRICAN AMERICAN 20 ML/MIN (>=60); GFR NON AFRICAN AMERICAN 18 ML/MIN (>=60); GLOBULIN 4.5 G/DL (2.5-4.1); GLUCOSE, SERUM 46 MG/DL (60-99); PHOSPHORUS, SERUM 2.7 MG/DL (2.5-4.5); POTASSIUM, SERUM 2.8 MMOL/L (3.5-5.3); SODIUM, SERUM 138 MMOL/L (135-148); ULTRASENSITIVE TSH 0.944 MCIU/ML (0.358-3.740)
[2016-12-01 17:25] LABS: PROCALCITONIN 1.61 ng/mL (<0.5)
[2016-12-02 06:53] LABS: BASOPHILS 0.1 %; BASOPHILS ABSOLUTE 0.01 10/3/uL (0.0-0.16); EOSINOPHILS 0.9 %; EOSINOPHILS ABSOLUTE 0.07 10/3/uL (0.0-0.53); HEMATOCRIT 26.8 % (40.0-51.0); HEMOGLOBIN 8.7 g/dL (13.6-17.8); IMMATURE GRANULOCYTES 0.8 %; IMMATURE GRANULOCYTES ABSOLUTE 0.06 10/3/uL (0.0-0.11); LYMPHOCYTES 10.8 %; LYMPHOCYTES ABSOLUTE 0.86 10/3/uL (0.67-4.30); MEAN CORPUS HGB CONC 32.5 g/dL (32.0-36.0); MEAN CORPUSCULAR HEMOGLOB 29.3 pg (26.0-34.0); MEAN CORPUSCULAR VOLUME 90.2 fL (80-100); MEAN PLATELET VOLUME 8.9 fL (9.2-13.0); MONOCYTES 8.1 %; MONOCYTES ABSOLUTE 0.64 10/3/uL (0.21-1.20); NEUTROPHILS 79.3 %; PLATELET COUNT 230 10/3/uL (150-400); RBC DISTRIBUTION WIDTH 15.1 % (12.0-16.0); RED CELL COUNT 2.97 10/6/uL (4.7-6.1); WHITE BLOOD CELLS 7.9 10/3/uL (4.5-10.5)
[2016-12-02 06:54] LABS: MANUAL DIFF NO %
[2016-12-02 06:58] LABS: INTERNATIONAL NORMAL RATI 1.7 UNITS (-); PROTIME (NOT ORD) 19.6 SEC (12.0-14.5)
[2016-12-02 07:10] LABS: ALBUMIN 2.4 G/DL (3.5-5.0); BUN (BLOOD UREA NITROGEN) 36 MG/DL (6-23); CALCIUM, SERUM 8.5 MG/DL (8.5-10.4); CHLORIDE, SERUM 109 MMOL/L (96-112); CO2 (CARBON DIOXIDE) 19 MMOL/L (24-34); CREATININE 3.76 MG/DL (0.70-1.30); GFR AFRICAN AMERICAN 20 ML/MIN (>=60); GFR NON AFRICAN AMERICAN 18 ML/MIN (>=60); GLUCOSE, SERUM 65 MG/DL (60-99); PHOSPHORUS, SERUM 2.5 MG/DL (2.5-4.5); POTASSIUM, SERUM 3.1 MMOL/L (3.5-5.3); SODIUM, SERUM 141 MMOL/L (135-148)
[2016-12-02 21:10] LABS: ASCORBIC ACID (UR NOT ORDER) NEG (NEG); BILIRUBIN, URINE NEGATIVE (NEG); KETONE, URINE NEGATIVE (NEG); LEUKOCYTE ESTERASE(NOT OR NEG (NEG); WBC (NOT ORDERED) (RFLEX) 9 (0-5)
[2016-12-03 04:35] LABS: INTERNATIONAL NORMAL RATI 1.6 UNITS (-)
[2016-12-03 04:44] LABS: HEMATOCRIT 24.8 % (40.0-51.0); HEMOGLOBIN 7.9 g/dL (13.6-17.8); MEAN CORPUS HGB CONC 31.9 g/dL (32.0-36.0); MEAN CORPUSCULAR HEMOGLOB 28.7 pg (26.0-34.0); MEAN CORPUSCULAR VOLUME 90.2 fL (80-100); MEAN PLATELET VOLUME 8.8 fL (9.2-13.0); NUCLEATED RED BLOOD CELLS 0.3 /100WBC (0-0); PLATELET COUNT 221 10/3/uL (150-400); RBC DISTRIBUTION WIDTH 15.4 % (12.0-16.0); RED CELL COUNT 2.75 10/6/uL (4.7-6.1)
[2016-12-03 04:47] LABS: MANUAL DIFF YES %; WHITE BLOOD CELLS 19.2 10/3/uL (4.5-10.5)
[2016-12-03 04:48] LABS: ALBUMIN 2.3 G/DL (3.5-5.0); CALCIUM, SERUM 8.6 MG/DL (8.5-10.4); CHLORIDE, SERUM 104 MMOL/L (96-112); CO2 (CARBON DIOXIDE) 20 MMOL/L (24-34); PHOSPHORUS, SERUM 2.1 MG/DL (2.5-4.5); POTASSIUM, SERUM 3.4 MMOL/L (3.5-5.3); SODIUM, SERUM 137 MMOL/L (135-148)
[2016-12-03 04:50] LABS: BUN (BLOOD UREA NITROGEN) 44 MG/DL (6-23); CREATININE 4.45 MG/DL (0.70-1.30); GFR AFRICAN AMERICAN 17 ML/MIN (>=60); GFR NON AFRICAN AMERICAN 14 ML/MIN (>=60); GLUCOSE, SERUM 82 MG/DL (60-99)
[2016-12-03 05:38] LABS: BAND NEUTROPHILS 14 %; LYMPHOCYTES 6 %; LYMPHOCYTES ABSOLUTE (CALC) 1.15 10/3/uL (0.67-4.30); MONOCYTES 5 %; MONOCYTES ABSOLUTE (CALC) 0.96 10/3/uL (0.21-1.20); NEUTROPHILS ABSOLUTE (CALC) 17.09 10/3/uL (2.02-8.40); PLATELET ESTIMATE ADQ (ADEQUATE); RBC MORPHOLOGY NORM (NORMAL); SEGMENTED NEUTROPHIL (0) 75 %; TOTAL NUCLEATED CELLS 100
[2016-12-03 09:29] LABS: POTASSIUM, SERUM 3.9 MMOL/L (3.5-5.3)
[2016-12-04 07:13] LABS: BASOPHILS 0.2 %; BASOPHILS ABSOLUTE 0.02 10/3/uL (0.0-0.16); EOSINOPHILS 1.7 %; EOSINOPHILS ABSOLUTE 0.21 10/3/uL (0.0-0.53); HEMATOCRIT 25.7 % (40.0-51.0); HEMOGLOBIN 8.3 g/dL (13.6-17.8); IMMATURE GRANULOCYTES 1.7 %; IMMATURE GRANULOCYTES ABSOLUTE 0.21 10/3/uL (0.0-0.11); LYMPHOCYTES 11.1 %; LYMPHOCYTES ABSOLUTE 1.39 10/3/uL (0.67-4.30); MEAN CORPUS HGB CONC 32.3 g/dL (32.0-36.0); MEAN CORPUSCULAR HEMOGLOB 28.7 pg (26.0-34.0); MEAN CORPUSCULAR VOLUME 88.9 fL (80-100); MEAN PLATELET VOLUME 8.7 fL (9.2-13.0); MONOCYTES 8.8 %; MONOCYTES ABSOLUTE 1.11 10/3/uL (0.21-1.20); NEUTROPHILS 76.5 %; NEUTROPHILS ABSOLUTE 9.61 10/3/uL (2.02-8.40); PLATELET COUNT 203 10/3/uL (150-400); RBC DISTRIBUTION WIDTH 15.5 % (12.0-16.0); RED CELL COUNT 2.89 10/6/uL (4.7-6.1); WHITE BLOOD CELLS 12.6 10/3/uL (4.5-10.5)
[2016-12-04 07:14] LABS: MANUAL DIFF NO %
[2016-12-04 07:19] LABS: INTERNATIONAL NORMAL RATI 1.7 UNITS (-); PROTIME (NOT ORD) 19.8 SEC (12.0-14.5)
[2016-12-04 07:22] LABS: ALBUMIN 2.4 G/DL (3.5-5.0); BUN (BLOOD UREA NITROGEN) 54 MG/DL (6-23); CALCIUM, SERUM 9.1 MG/DL (8.5-10.4); CHLORIDE, SERUM 106 MMOL/L (96-112); CO2 (CARBON DIOXIDE) 20 MMOL/L (24-34); CREATININE 5.17 MG/DL (0.70-1.30); GFR AFRICAN AMERICAN 14 ML/MIN (>=60); GFR NON AFRICAN AMERICAN 12 ML/MIN (>=60); GLUCOSE, SERUM 135 MG/DL (60-99); PHOSPHORUS, SERUM 3.8 MG/DL (2.5-4.5); POTASSIUM, SERUM 3.5 MMOL/L (3.5-5.3); SODIUM, SERUM 139 MMOL/L (135-148)
[2016-12-04 08:58] LABS: PROCALCITONIN 43.42 ng/mL (<0.5)
[2016-12-05 06:15] LABS: ALBUMIN 2.3 G/DL (3.5-5.0); BUN (BLOOD UREA NITROGEN) 54 MG/DL (6-23); CALCIUM, SERUM 8.7 MG/DL (8.5-10.4); CHLORIDE, SERUM 105 MMOL/L (96-112); CO2 (CARBON DIOXIDE) 18 MMOL/L (24-34); CREATININE 5.04 MG/DL (0.70-1.30); GFR AFRICAN AMERICAN 14 ML/MIN (>=60); GFR NON AFRICAN AMERICAN 12 ML/MIN (>=60); GLUCOSE, SERUM 122 MG/DL (60-99); POTASSIUM, SERUM 3.7 MMOL/L (3.5-5.3); SODIUM, SERUM 137 MMOL/L (135-148)
[2016-12-05 06:22] LABS: PHOSPHORUS, SERUM 2.7 MG/DL (2.5-4.5)
[2016-12-05 07:38] LABS: HEMOGLOBIN 8.4 g/dL (13.6-17.8); MEAN CORPUS HGB CONC 32.3 g/dL (32.0-36.0); MEAN CORPUSCULAR HEMOGLOB 28.6 pg (26.0-34.0); MEAN CORPUSCULAR VOLUME 88.4 fL (80-100); MEAN PLATELET VOLUME 8.4 fL (9.2-13.0); PLATELET COUNT 248 10/3/uL (150-400); RBC DISTRIBUTION WIDTH 15.2 % (12.0-16.0); RED CELL COUNT 2.94 10/6/uL (4.7-6.1); WHITE BLOOD CELLS 13.7 10/3/uL (4.5-10.5)
[2016-12-05 07:41] LABS: MANUAL DIFF YES %
[2016-12-05 07:47] LABS: INTERNATIONAL NORMAL RATI 1.9 UNITS (-); PROTIME (NOT ORD) 21.2 SEC (12.0-14.5)
[2016-12-05 07:58] LABS: BAND NEUTROPHILS 3 %; BASOPHILS 2 %; BASOPHILS ABSOLUTE (CALC) 0.27 10/3/uL (0.0-0.16); EOSINOPHILS 1 %; EOSINOPHILS ABSOLUTE (CALC) 0.14 10/3/uL (0.0-0.53); IMMATURE GRANS ABSOLUTE (CALC) 0.14 10/3/uL (0.0-0.11); LYMPHOCYTES 15 %; LYMPHOCYTES ABSOLUTE (CALC) 2.06 10/3/uL (0.67-4.30); METAMYELOCYTES 1 %; MONOCYTES 7 %; MONOCYTES ABSOLUTE (CALC) 0.96 10/3/uL (0.21-1.20); NEUTROPHILS ABSOLUTE (CALC) 10.14 10/3/uL (2.02-8.40); PLATELET ESTIMATE ADQ (ADEQUATE); POLYCHROMASIA 1+ (2-5/OIF) (0-1/OIF); SEGMENTED NEUTROPHIL (0) 71 %; TEARDROP SHAPED RBCS OCC (0-2/OIF); TOTAL NUCLEATED CELLS 100; TOXIC GRANULATION SLT; VACUOLATED NEUTROPHILES OCC
[2016-12-06 05:10] LABS: INTERNATIONAL NORMAL RATI 1.7 UNITS (-); PROTIME (NOT ORD) 20.2 SEC (12.0-14.5)
[2016-12-06 05:18] LABS: ALBUMIN 2.2 G/DL (3.5-5.0); BUN (BLOOD UREA NITROGEN) 53 MG/DL (6-23); CALCIUM, SERUM 8.5 MG/DL (8.5-10.4); CHLORIDE, SERUM 106 MMOL/L (96-112); CO2 (CARBON DIOXIDE) 19 MMOL/L (24-34); CREATININE 4.86 MG/DL (0.70-1.30); GFR AFRICAN AMERICAN 15 ML/MIN (>=60); GFR NON AFRICAN AMERICAN 13 ML/MIN (>=60); POTASSIUM, SERUM 3.3 MMOL/L (3.5-5.3); SODIUM, SERUM 138 MMOL/L (135-148)
[2016-12-06 05:21] LABS: GLUCOSE, SERUM 156 MG/DL (60-99)
[2016-12-06 05:30] LABS: BASOPHILS 0.3 %; BASOPHILS ABSOLUTE 0.04 10/3/uL (0.0-0.16); EOSINOPHILS 2.2 %; EOSINOPHILS ABSOLUTE 0.27 10/3/uL (0.0-0.53); HEMATOCRIT 24.8 % (40.0-51.0); HEMOGLOBIN 7.8 g/dL (13.6-17.8); IMMATURE GRANULOCYTES 3.7 %; IMMATURE GRANULOCYTES ABSOLUTE 0.46 10/3/uL (0.0-0.11); LYMPHOCYTES 15.2 %; LYMPHOCYTES ABSOLUTE 1.88 10/3/uL (0.67-4.30); MEAN CORPUS HGB CONC 31.5 g/dL (32.0-36.0); MEAN CORPUSCULAR HEMOGLOB 28.5 pg (26.0-34.0); MEAN CORPUSCULAR VOLUME 90.5 fL (80-100); MEAN PLATELET VOLUME 8.7 fL (9.2-13.0); MONOCYTES 7.9 %; MONOCYTES ABSOLUTE 0.98 10/3/uL (0.21-1.20); NEUTROPHILS 70.7 %; NEUTROPHILS ABSOLUTE 8.75 10/3/uL (2.02-8.40); PLATELET COUNT 241 10/3/uL (150-400); RED CELL COUNT 2.74 10/6/uL (4.7-6.1); WHITE BLOOD CELLS 12.4 10/3/uL (4.5-10.5)
[2016-12-06 05:32] LABS: MANUAL DIFF NO %
[2016-12-06 10:50] LABS: PROCALCITONIN 16.08 ng/mL (<0.5)
[2016-12-07 05:21] LABS: HEMATOCRIT 27.2 % (40.0-51.0); HEMOGLOBIN 8.7 g/dL (13.6-17.8); MEAN CORPUSCULAR HEMOGLOB 28.8 pg (26.0-34.0); MEAN CORPUSCULAR VOLUME 90.1 fL (80-100); MEAN PLATELET VOLUME 8.5 fL (9.2-13.0); RBC DISTRIBUTION WIDTH 14.8 % (12.0-16.0); RED CELL COUNT 3.02 10/6/uL (4.7-6.1); WHITE BLOOD CELLS 13.5 10/3/uL (4.5-10.5)
[2016-12-07 05:23] LABS: PLATELET COUNT 335 10/3/uL (150-400)
[2016-12-07 05:24] LABS: MANUAL DIFF YES %
[2016-12-07 05:27] LABS: INTERNATIONAL NORMAL RATI 1.5 UNITS (-); PROTIME (NOT ORD) 17.7 SEC (12.0-14.5)
[2016-12-07 05:35] LABS: ALBUMIN 2.4 G/DL (3.5-5.0); BUN (BLOOD UREA NITROGEN) 55 MG/DL (6-23); CALCIUM, SERUM 9.2 MG/DL (8.5-10.4); CHLORIDE, SERUM 105 MMOL/L (96-112); CO2 (CARBON DIOXIDE) 19 MMOL/L (24-34); CREATININE 4.45 MG/DL (0.70-1.30); GFR AFRICAN AMERICAN 17 ML/MIN (>=60); GFR NON AFRICAN AMERICAN 14 ML/MIN (>=60); POTASSIUM, SERUM 3.6 MMOL/L (3.5-5.3); SODIUM, SERUM 138 MMOL/L (135-148)
[2016-12-07 05:36] LABS: GLUCOSE, SERUM 114 MG/DL (60-99)
[2016-12-07 05:43] LABS: BAND NEUTROPHILS 8 %; EOSINOPHILS 1 %; EOSINOPHILS ABSOLUTE (CALC) 0.14 10/3/uL (0.0-0.53); IMMATURE GRANS ABSOLUTE (CALC) 0.27 10/3/uL (0.0-0.11); LYMPHOCYTES 17 %; METAMYELOCYTES 2 %; MONOCYTES 8 %; MONOCYTES ABSOLUTE (CALC) 1.08 10/3/uL (0.21-1.20); NEUTROPHILS ABSOLUTE (CALC) 9.72 10/3/uL (2.02-8.40); PLATELET ESTIMATE ADQ (ADEQUATE); RBC MORPHOLOGY NORM (NORMAL); SEGMENTED NEUTROPHIL (0) 64 %; TOTAL NUCLEATED CELLS 100
[2016-12-07 10:45] LABS: HEPATITIS B SURFACE ANTIGEN NON-REACTIVE (NON-REACT)
[2016-12-07 11:02] LABS: HEPATITIS C ANTIBODY NON-REACTIVE (NON-REACT)
[2016-12-07 11:03] LABS: HEPATITIS B CORE AB IGM NON-REACTIVE (NON-REAC)
[2016-12-07 11:04] LABS: HIV COMBO NON-REACTIVE (NON REAC)
[2016-12-07 12:11] LABS: HEP A ANTIBODY IGM NON-REACTIVE (NON-REACT)
[2016-12-07] MEDS ORDERED: CIP2 PO (13:46)
[2016-12-07] MEDS ORDERED: NORCO1 TA2 PO (14:17)
== END 2016-12-07 14:51 | disposition home or self-care (01) | DRG 872 ==
LOC: ENRESERVDT → ENRESERV → ENRESERVTM → ENPENDDIS 14:16 → 6NO 14:16
PROVIDERS: Internal Medicine; Internal Medicine Nephrology; Registered Nurse
DX: A41.51 Sepsis due to Escherichia coli [E. coli] (principal); T86.11 Kidney transplant rejection; M32.9 Systemic lupus erythematosus, unspecified; E11.22 Type 2 diabetes mellitus with diabetic chronic kidney disease; N18.4 Chronic kidney disease, stage 4 (severe); K50.90 Crohn's disease, unspecified, without complications; N39.0 Urinary tract infection, site not specified; I48.2 Chronic atrial fibrillation; I48.0 Paroxysmal atrial fibrillation; G47.33 Obstructive sleep apnea (adult) (pediatric); M19.90 Unspecified osteoarthritis, unspecified site; E78.5 Hyperlipidemia, unspecified; E66.9 Obesity, unspecified; I12.9 Hypertensive chronic kidney disease with stage 1 through stage 4 chronic kidney disease, or unspecified chronic kidney disease; S05.11XD Contusion of eyeball and orbital tissues, right eye, subsequent encounter; X58.XXXD Exposure to other specified factors, subsequent encounter; Z98.1 Arthrodesis status; Z68.37 Body mass index [BMI] 37.0-37.9, adult; Z79.52 Long term (current) use of systemic steroids; Z79.01 Long term (current) use of anticoagulants
CPT/HCPCS: 80053; 80069; 80074; 80158; 80202; 81001; 82962; 83605; 83735; 84100; 84132; 84145; 84443; 85025; 85610; 87040; 87389; 97161-GP; A9270-GY; C8929; J0692; J2405; J2550; J3370; J3475; J7515; Q9957